=== PATIENT | male | born 1965 | race Two or more races ===

== ENCOUNTER → 2018-10-07 | Outpatient (CLI) | payer BC | LOC: BRMIMAGING 14:13 | PROVIDERS: ATTEND Internal Medicine | DX: M25.50 Pain in unspecified joint (principal); M02.84 Other reactive arthropathies, hand; M10.071 Idiopathic gout, right ankle and foot; M10.072 Idiopathic gout, left ankle and foot; M19.022 Primary osteoarthritis, left elbow; M19.021 Primary osteoarthritis, right elbow; M21.921 Unspecified acquired deformity of right upper arm; M17.0 Bilateral primary osteoarthritis of knee | CPT/HCPCS: 73080-PO; 73130-PO; 73562-PO; 73630-PO ==